=== PATIENT | female | born 1985 ===

== ENCOUNTER 2022-05-08 09:52 | Day surgery (SDC) | payer OTHER ==
[~2022-05-08] VITALS: Ht 167.6 cm; Wt 64.0 kg
[~2022-05-08 09:52] MED LIST: MAXIFED TABLET1 EACH PO; PROVERA2.5 MG PO; SYNTHROID100 MCG PO
== END 2022-05-08 21:55 | disposition home or self-care (01) ==
LOC: CIR.AMB 09:52
PROVIDERS: ATTEND Obstetrics & Gynecology
DX: D25.0 Submucous leiomyoma of uterus (principal); Z20.822 Contact with and (suspected) exposure to COVID-19; E06.3 Autoimmune thyroiditis; K21.9 Gastro-esophageal reflux disease without esophagitis